=== PATIENT | female | born 1980 | race Hispanic/Latino ===

== ENCOUNTER 2022-11-19 10:09 | Inpatient (IN) | payer OTHER ==
[2022-11-19 11:17] LABS: #Eosinphils 0.1 thou/uL (0.0-0.7); #Monocytes 0.5 thou/uL (0.11-0.59); #Neutrophils 5.4 thou/uL (1.40-6.50); %Basophils 0.3 % (0.0-1.0); %Eosinophils 1.9 % (0.0-10.0); %Lymphocytes 17.1 % (21.0-51.0); %Monocytes 7.2 % (0.0-10.0); %Neutrophils 73.1 % (42.0-75.0); Hemoglobin 11.4 g/dL (12.0-16.0); Mean Corpuscular HGB CONC 31.5 g/dL (32.0-36.0); Mean Corpuscular Hemoglobin 27.9 pg (27.0-31.0); Mean Corpuscular Volume 88.7 fl (78.0-98.0); Mean Platelet Volume 8.7 fL (7.4-10.4); Platelet Count 460 10x3/uL (130-400); RBC Distribution Width 13.2 % (11.5-14.5); Red Blood Cell (RBC) Count 4.08 mill/uL (4.20-5.40); White Blood Cell (WBC) Count 7.4 10x3/uL (4.8-10.8)
[2022-11-19 11:42] LABS: BHCG - Serum Negative (NEGATIVE); Pregs Control Background? CLEAR/WHITE (CLR/WHITE); Pregs Control Bar Appear? YES (CONTROL BAR)
[2022-11-19 12:01] LABS: ALT (SGPT) 14 U/L (8-55); AST (SGOT) 13 U/L (5-34); Albumin 3.6 g/dL (3.5-5.0); Alkaline Phosphatase 59 U/L (40-110); Anion Gap 12 mmol/L (10-20); BUN (Urea Nitrogen) 14 mg/dL (7.0-18.7); Bilirubin, Total 0.2 mg/dL (0.2-1.2); Calc. Creatinine Clearance 0 mL/min (70-130); Calcium 8.9 mg/dL (7.8-10.44); Carbon Dioxide 25 mmol/L (22-29); Chloride 107 mmol/L (98-107); Estimated GFR 114; Globulin 3.9 g/dL (2.4-3.5); Glucose 89 mg/dL (70-105); Potassium 4.4 mmol/L (3.5-5.1); Protein, Total 7.5 g/dL (6.0-8.3); Sodium 140 mmol/L (136-145)
[2022-11-19] MEDS ORDERED: Aspirin 325 MG TAB ONE (13:23)
[2022-11-19] MEDS ORDERED: Morphine 4 MG/ML VIAL ONE (13:25)
[2022-11-19] MEDS ORDERED: Ondansetron PF 4 MG/2 ML Vial ONE (13:25)
[2022-11-19] MEDS ORDERED: Aspirin Chewable 81 MG TAB ONE ×2 (13:25→13:35)
[2022-11-19] MEDS ORDERED: Cefepime 2 GM VIAL ONE (15:00)
[2022-11-19] MEDS ORDERED: Vancomycin 1.5 GRAM/300 ML BAG 1.5 GM in Premix Bag 1 BAG IVPB SCH (15:30)
[2022-11-19 15:51] VITALS: BMI 35.2
[2022-11-19] MEDS ORDERED: [UNRECOGNIZED DRUG - OTHER] IVPB PRN (16:00)
[2022-11-19] MEDS ORDERED: VANCOMYCIN IVPB PRN (16:00)
[2022-11-19] MEDS ORDERED: HYDROcodone/Acetaminophen 5/325 mg Tablet ONE (16:02)
[2022-11-19] MEDS: HYDROcodone/Acetaminophen 5/325 mg Tablet PO PRN ×2 (16:05→22:14)
[2022-11-19] MEDS ORDERED: Ondansetron ODT 4 MG TAB PO PRN (17:01)
[2022-11-19] MEDS ORDERED: Senokot S 8.6-50 MG TAB PO PRN (17:01)
[2022-11-19] MEDS ORDERED: Calcium Carbonate 500 MG ChewTAB PO PRN (17:01)
[2022-11-19] MEDS: cefTRIAXone\\ROCEPHIN 2 GM in Sodium Chloride 0.9% 100 ML IVPB SCH (22:12)
[2022-11-19] MEDS: Famotidine 20 MG TAB PO SCH (22:13)
[2022-11-19] MEDS: Acetaminophen 325 MG TAB PO PRN (23:42)
[2022-11-20] MEDS: Vancomycin 1.5 GRAM/300 ML BAG 1.5 GM in Premix Bag 1 BAG IVPB SCH ×4 (00:03→20:55)
[2022-11-20] MEDS ORDERED: Amitriptyline HCl 100 MG TAB PO SCH (00:19)
[2022-11-20] MEDS: Acetaminophen 325 MG TAB PO PRN (05:43)
[2022-11-20] MEDS: HYDROcodone/Acetaminophen 5/325 mg Tablet PO PRN ×3 (05:44→17:33)
[2022-11-20 07:21] LABS: HIV (1/2) Antibody/Antigen Non-Reactive (NonReactive); HIV 1/2 INDEX 0.12 S/CO (<1.00)
[2022-11-20] MEDS: Famotidine 20 MG TAB PO SCH ×2 (08:12→20:54)
[2022-11-20] MEDS ORDERED: metFORMIN 500 MG TAB PO SCH (09:00)
[2022-11-20] MEDS: Furosemide 40 MG TAB PO SCH ×2 (09:16→20:54)
[2022-11-20] MEDS: Propranolol 40 MG TAB PO SCH ×3 (09:16→20:57)
[2022-11-20] MEDS: Saccharomyces boulardii 250 MG CAP PO SCH (09:16)
[2022-11-20 10:50] LABS: Syphilis Antibody Nonreactive (Nonreactive); Syphilis Antibody Index 0.14 S/CO (<1.00 Non-Reactive)
[2022-11-20 13:05] LABS: ANA Symphony (Qualitative) Negative (Negative); ANA Symphony (Quantitative) Less than 0.1 Ratio (< 0.7 Negative); dsDNA IgG Antibody 2.6 IU/mL (<10 Negative)
[2022-11-20] MEDS: DULoxetine 30 MG CAP PO SCH (17:33)
[2022-11-20] MEDS: metFORMIN 500 MG TAB PO SCH (17:34)
[2022-11-20] MEDS: cefTRIAXone\\ROCEPHIN 2 GM in Sodium Chloride 0.9% 100 ML IVPB SCH (20:57)
[2022-11-21] MEDS: HYDROcodone/Acetaminophen 5/325 mg Tablet PO PRN ×4 (00:19→20:12)
[2022-11-21 07:11] LABS: #Eosinphils 0.1 thou/uL (0.0-0.7); #Monocytes 0.6 thou/uL (0.11-0.59); #Neutrophils 3.1 thou/uL (1.40-6.50); %Basophils 0.5 % (0.0-1.0); %Eosinophils 2.1 % (0.0-10.0); %Lymphocytes 31.6 % (21.0-51.0); %Monocytes 9.8 % (0.0-10.0); %Neutrophils 55.6 % (42.0-75.0); Mean Corpuscular HGB CONC 31.4 g/dL (32.0-36.0); Mean Corpuscular Hemoglobin 27.7 pg (27.0-31.0); Mean Corpuscular Volume 88.2 fl (78.0-98.0); Mean Platelet Volume 8.8 fL (7.4-10.4); Platelet Count 446 10x3/uL (130-400); Red Blood Cell (RBC) Count 3.97 mill/uL (4.20-5.40); White Blood Cell (WBC) Count 5.6 10x3/uL (4.8-10.8)
[2022-11-21] MEDS: Vancomycin 1.5 GRAM/300 ML BAG 1.5 GM in Premix Bag 1 BAG IVPB SCH ×2 (07:39→20:06)
[2022-11-21] MEDS: metFORMIN 500 MG TAB PO SCH ×2 (07:40→17:37)
[2022-11-21] MEDS: Saccharomyces boulardii 250 MG CAP PO SCH (07:40)
[2022-11-21] MEDS: Propranolol 40 MG TAB PO SCH ×2 (07:40→20:07)
[2022-11-21] MEDS: Furosemide 40 MG TAB PO SCH ×2 (07:40→20:07)
[2022-11-21] MEDS: Famotidine 20 MG TAB PO SCH ×2 (07:40→20:07)
[2022-11-21 07:41] LABS: Anion Gap 15 mmol/L (10-20); BUN (Urea Nitrogen) 10 mg/dL (7.0-18.7); CRP (Inflammatory) 7.13 mg/dL (= or < 0.5); Calc. Creatinine Clearance 181 mL/min (70-130); Calcium 8.9 mg/dL (7.8-10.44); Carbon Dioxide 25 mmol/L (22-29); Chloride 99 mmol/L (98-107); Estimated GFR 114; Glucose 82 mg/dL (70-105); Sodium 135 mmol/L (136-145)
[2022-11-21] MEDS: Amitriptyline HCl 100 MG TAB PO SCH (08:16)
[2022-11-21 11:44] LABS: Chlam.trachomatis by PCR,Urine Not Detected (NotDetected); GC N.gonorrhoeae PCR,UrineVOID Not Detected (NotDetected)
[2022-11-21 15:29] LABS: MONO NEGATIVE CONTROL ZONE White (Negative) (White); MONO POSITIVE CONTROL Pink Line (Positive) (PINK/RED); Mononucleosis NEGATIVE (NEGATIVE)
[2022-11-21 15:51] LABS: HBCM Index 0.07 S/CO (0-0.79); HBSAg Index 0.24 S/CO (0-0.99); Hep A IgM AB Non-Reactive S/CO (NonReactive); Hep A IgM S/CO 0.21 S/CO (0-0.79); Hep B Surf Ag Non-Reactive S/CO (NonReactive); Hep C IgG Ab Non-Reactive S/CO (NonReactive); Hep C Index 0.09 S/CO (0-0.79); Hepatitis B Core IgM Abs Non-Reactive S/CO (NonReactive)
[2022-11-21] MEDS: DULoxetine 30 MG CAP PO SCH (17:37)
[2022-11-21] MEDS: cefTRIAXone\\ROCEPHIN 2 GM in Sodium Chloride 0.9% 100 ML IVPB SCH (20:01)
[2022-11-21] MEDS: predniSONE 50 MG TAB PO SCH (20:06)
[2022-11-21] MEDS: Acetaminophen 325 MG TAB PO PRN (20:15)
[2022-11-21] MEDS: Ondansetron PF 4 MG/2 ML Vial IVP PRN (22:22)
[2022-11-22] MEDS: predniSONE 50 MG TAB PO SCH ×2 (01:34→08:03)
[2022-11-22 02:30] VITALS: TEMP 98.1
[2022-11-22] MEDS: HYDROcodone/Acetaminophen 5/325 mg Tablet PO PRN (06:26)
[2022-11-22 07:46] LABS: Vancomycin, Trough 12.8 ug/mL
[2022-11-22] MEDS ORDERED: diphenhydrAMINE 25 MG CAP PO SCH (08:00)
[2022-11-22] MEDS: Ondansetron PF 4 MG/2 ML Vial IVP PRN (08:06)
[2022-11-22 08:46] VITALS: BP 98/63
[2022-11-22] MEDS: Saccharomyces boulardii 250 MG CAP PO SCH (09:56)
[2022-11-22] MEDS: Famotidine 20 MG TAB PO SCH (09:56)
[2022-11-22] MEDS: Furosemide 40 MG TAB PO SCH (09:58)
[2022-11-22] MEDS: Amitriptyline HCl 100 MG TAB PO SCH (09:58)
[2022-11-22] MEDS: metFORMIN 500 MG TAB PO SCH (09:58)
[2022-11-22 10:14] LABS: EBV VCA IgM <36.0 U/mL (0.0-35.9); Nuclear AG IgG (EBNA) AB >600.0 U/mL (0.0-17.9)
[2022-11-22] MEDS: Propranolol 40 MG TAB PO SCH (10:26)
[2022-11-22] MEDS ORDERED: Bicillin LA 1.2 MILLION UNITS/2 ML SYRINGE IM SCH (13:00)
[2022-11-22] MEDS ORDERED: Bicillin LA 2.4 MILL.UNITS/4 ML SYRINGE IM SCH (13:45)
[2022-11-22] MEDS ORDERED: Iopamidol-370 76% 500 ML MDV (1 ML CHARGE) ONE (14:11)
[2022-11-25 22:08] LABS: Mycoplasma pneumoniae IgG AB 164 U/mL (0-99); Mycoplasma pneumoniae IgM AB Less than 770 U/mL (0-769)
== END 2022-11-22 14:59 | DRG 596 ==
LOC: ERS 10:09 → ERHOLD 13:28 → T4-B 19:53 → OBSVTOIN 11-20 13:42
PROVIDERS: ADMIT Internal Medicine; ATTEND Internal Medicine
DX: L52 Erythema nodosum (principal); L03.115 Cellulitis of right lower limb; L03.116 Cellulitis of left lower limb; F41.9 Anxiety disorder, unspecified; E11.9 Type 2 diabetes mellitus without complications; G43.909 Migraine, unspecified, not intractable, without status migrainosus; I10 Essential (primary) hypertension; Z88.2 Allergy status to sulfonamides; Z91.010 Allergy to peanuts; Z79.84 Long term (current) use of oral hypoglycemic drugs; Z79.899 Other long term (current) drug therapy; Z98.890 Other specified postprocedural states
CPT/HCPCS: 36415; 71260; 74177; 80048; 80053; 80074; 80202; 82164; 82550; 83605; 84484; 84703; 85025; 85652; 86038; 86060; 86140; 86225; 86308; 86480; 86664; 86665; 86780; 87040; 87389; 87449; 87491; 87591; 93005; 93306; 96361; 96365; 96366; 96367; 96375; 96376; G0378; J0561; J0692; J0696; J2270; J2405; J3370; J3490; J7512; Q9967

== ENCOUNTER 2022-11-28 07:33 | Outpatient (CLI) | payer OTHER | END 2022-11-28 07:34 | disposition home or self-care (01) | LOC: CT 07:33 | PROVIDERS: ATTEND Family Medicine | DX: K43.9 Ventral hernia without obstruction or gangrene (principal) | CPT/HCPCS: 74150 ==

== ENCOUNTER 2023-06-11 09:51 | Inpatient (IN) | payer OTHER ==
[2023-06-11] MEDS ORDERED: Midazolam HCl 2 mg/2 ml Vial ONE (12:35)
[2023-06-11] MEDS ORDERED: fentaNYL 50 mcg/mL 1 mL Vial ONE ×3 (12:35→16:46)
[2023-06-11] MEDS ORDERED: Sodium Chloride 0.9% 100 ML ONE (13:57)
[2023-06-11] MEDS ORDERED: CEFAZOLIN 2 GM VIAL ONE (13:57)
[2023-06-11] MEDS ORDERED: Moisturizing Cream (Eucerin) 113 GM JAR TOP PRN (14:00)
[2023-06-11] MEDS ORDERED: traMADol HCl 50 MG TAB PO PRN ×2 (14:00)
[2023-06-11] MEDS ORDERED: Naloxone HCl 0.4 mg/ml Vial IV PRN ×2 (14:00→17:29)
[2023-06-11] MEDS ORDERED: HYDROcodone/Acetaminophen 5/325 mg Tablet PO PRN ×2 (14:00)
[2023-06-11] MEDS ORDERED: diphenhydrAMINE 25 MG CAP PO PRN (14:00)
[2023-06-11] MEDS ORDERED: PROPOFOL 20 ML ONE (14:00)
[2023-06-11] MEDS ORDERED: FENTANYL 500 MCG/10 ML VIAL 500 MCG, Bupivacaine 0.75% 10 ML in Sodium Chloride 0.9% 80 ML EPIDURAL SCH (14:00)
[2023-06-11] MEDS ORDERED: Naloxone HCl 0.4 mg/ml Vial IVP PRN (14:00)
[2023-06-11] MEDS ORDERED: Ondansetron PF 4 MG/2 ML Vial IVP PRN ×2 (14:00→15:56)
[2023-06-11] MEDS ORDERED: Bupivacaine 0.25% 10 ML VIAL EPIDURAL PRN (14:00)
[2023-06-11] MEDS ORDERED: Promethazine HCl 25 MG/ML VIAL IM PRN ×3 (14:00→16:09)
[2023-06-11] MEDS ORDERED: Zolpidem Tartrate 5 MG TAB PO PRN (14:00)
[2023-06-11] MEDS ORDERED: Fentanyl 250 MCG/5 ML VIAL ONE (14:00)
[2023-06-11] MEDS ORDERED: diphenhydrAMINE 50 MG/ML VIAL IVP PRN (14:00)
[2023-06-11] MEDS ORDERED: Promethazine HCl 25 MG SUPP PR PRN (14:00)
[2023-06-11] MEDS ORDERED: diphenhydrAMINE 50 MG/ML VIAL IM PRN ×2 (14:00→17:29)
[2023-06-11] MEDS ORDERED: Bupivacaine 0.25% HCL 30 ML VIAL ONE (14:09)
[2023-06-11] MEDS ORDERED: SUCCINYLCHOLINE/SOD CL,ISO/PF 200 MG/10 ML SYRINGE FS ONE (14:11)
[2023-06-11] MEDS ORDERED: Rocuronium Bromide 10 MG/ML (10ML VIAL) ONE (14:11)
[2023-06-11] MEDS ORDERED: Lidocaine 1% PF 5 ML VIAL ONE (14:11)
[2023-06-11] MEDS ORDERED: Lidocaine 1.5% w/Epi 1:200K 30 ML VIAL (Epid Use) ONE (14:11)
[2023-06-11] MEDS ORDERED: fentaNYL PF 100 MCG/2 ML SYRINGE ONE (14:16)
[2023-06-11] MEDS ORDERED: Dexamethasone 4 mg/ml Vial ONE (14:43)
[2023-06-11] MEDS ORDERED: Ondansetron PF 4 MG/2 ML Vial ONE (14:43)
[2023-06-11] MEDS ORDERED: SUGAMMADEX SODIUM 200 MG/2 ML VIAL ONE (15:40)
[2023-06-11] MEDS ORDERED: hydrALAZINE 20 MG/ML VIAL SLOW IVP PRN (15:56)
[2023-06-11] MEDS ORDERED: HYDROmorphone 2 MG/ML VIAL SLOW IVP PRN (16:09)
[2023-06-11] MEDS ORDERED: PACU-Morphine 4MG/ML VIAL SLOW IVP PRN (16:09)
[2023-06-11] MEDS ORDERED: Ondansetron HCl/PF 4 MG/2 ML Vial IVP PRN (16:09)
[2023-06-11] MEDS ORDERED: HYDROmorphone 0.5 MG/0.5 ML SYRINGE ONE ×4 (17:02→18:09)
[2023-06-11] MEDS ORDERED: Communication Order-Pharmacy FS SCH (17:30)
[2023-06-11] MEDS ORDERED: Ketorolac Tromethamine 30 MG (1 mL) VIAL ONE (18:26)
[2023-06-11] MEDS: Ketorolac Tromethamine 30 MG (1 mL) VIAL IVP SCH (20:46)
[2023-06-11] MEDS: Sodium Chloride 0.9% 1,000 ML IV SCH (21:27)
[2023-06-11] MEDS: Famotidine/PF 20 mg/2ml Vial SLOW IVP SCH (21:27)
[2023-06-11] MEDS: Famotidine 20 MG TAB PO SCH (21:27)
[2023-06-11] MEDS: CEFAZOLIN 2 GM in Sodium Chloride 0.9% 100 ML IVPB SCH (21:27)
[2023-06-11] MEDS: Ondansetron PF 4 MG/2 ML Vial IVP PRN (21:36)
[2023-06-12] MEDS: Promethazine HCl 25 MG/ML VIAL IM PRN (01:13)
[2023-06-12 04:41] LABS: #Monocytes 0.4 thou/uL (0.11-0.59); #Neutrophils 11.2 thou/uL (1.40-6.50); %Basophils 0.1 % (0.0-1.0); %Lymphocytes 4.7 % (21.0-51.0); %Monocytes 3.2 % (0.0-10.0); %Neutrophils 91.7 % (42.0-75.0); Hematocrit 34.9 % (36.0-47.0); Mean Corpuscular HGB CONC 31.5 g/dL (32.0-36.0); Mean Corpuscular Hemoglobin 28.1 pg (27.0-31.0); Mean Corpuscular Volume 89.3 fl (78.0-98.0); Mean Platelet Volume 9.6 fL (7.4-10.4); Platelet Count 308 10x3/uL (130-400); RBC Distribution Width 14.8 % (11.5-14.5); Red Blood Cell (RBC) Count 3.91 mill/uL (4.20-5.40); White Blood Cell (WBC) Count 12.2 10x3/uL (4.8-10.8)
[2023-06-12 05:06] LABS: Anion Gap 13 mmol/L (10-20); BUN (Urea Nitrogen) 14 mg/dL (7.0-18.7); Calc. Creatinine Clearance 206 mL/min (70-130); Calcium 8.3 mg/dL (7.8-10.44); Carbon Dioxide 23 mmol/L (22-29); Chloride 104 mmol/L (98-107); Estimated GFR 113; Glucose 143 mg/dL (70-105); Potassium 4.2 mmol/L (3.5-5.1); Sodium 136 mmol/L (136-145)
[2023-06-12] MEDS: SUMAtriptan Succinate 50 MG TAB PO PRN (05:23)
[2023-06-12] MEDS: Enoxaparin 40 MG (0.4 mL) SYRINGE SC SCH (08:26)
[2023-06-12] MEDS: FENTANYL 500 MCG/10 ML VIAL 2,000 MCG in Sodium Chloride 0.9% 60 ML IV PRN (15:50)
[2023-06-12 17:30] LABS: Hemoglobin 10.2 g/dL (12.0-16.0); Platelet Count 264 10x3/uL (130-400)
[2023-06-12 23:58] VITALS: BMI 42.4
[2023-06-13 03:38] LABS: Hemoglobin 9.5 g/dL (12.0-16.0); Platelet Count 238 10x3/uL (130-400)
[2023-06-13] MEDS: Ipratropium/Albuterol 3 ML NEB NEB PRN (08:21)
[2023-06-13] MEDS ORDERED: Bisacodyl 10 MG SUPP PR PRN (11:56)
[2023-06-13] MEDS: Enoxaparin 40 MG (0.4 mL) SYRINGE SC SCH (21:40)
[2023-06-13] MEDS: diphenhydrAMINE 50 MG/ML VIAL IVP PRN (21:41)
[2023-06-13] MEDS: Bisacodyl 10 MG SUPP PR SCH (21:45)
[2023-06-15] MEDS: diphenhydrAMINE 25 MG CAP PO PRN (21:41)
[2023-06-16 08:05] LABS: #Eosinphils 0.4 thou/uL (0.0-0.7); #Monocytes 0.5 thou/uL (0.11-0.59); #Neutrophils 3.8 thou/uL (1.40-6.50); %Basophils 0.2 % (0.0-1.0); %Eosinophils 6.3 % (0.0-10.0); %Lymphocytes 19.6 % (21.0-51.0); %Monocytes 8.3 % (0.0-10.0); %Neutrophils 65.3 % (42.0-75.0); Hematocrit 27.6 % (36.0-47.0); Hemoglobin 8.9 g/dL (12.0-16.0); Mean Corpuscular HGB CONC 32.2 g/dL (32.0-36.0); Mean Corpuscular Hemoglobin 29.2 pg (27.0-31.0); Mean Corpuscular Volume 90.5 fl (78.0-98.0); Mean Platelet Volume 8.9 fL (7.4-10.4); Platelet Count 309 10x3/uL (130-400); RBC Distribution Width 14.5 % (11.5-14.5); Red Blood Cell (RBC) Count 3.05 mill/uL (4.20-5.40); White Blood Cell (WBC) Count 5.9 10x3/uL (4.8-10.8)
[2023-06-16 08:40] LABS: ALT (SGPT) 13 U/L (8-55); AST (SGOT) 15 U/L (5-34); Albumin 2.9 g/dL (3.5-5.0); Alkaline Phosphatase 48 U/L (40-110); Anion Gap 14 mmol/L (10-20); BUN (Urea Nitrogen) 4 mg/dL (7.0-18.7); Bilirubin, Total 0.5 mg/dL (0.2-1.2); Calc. Creatinine Clearance 239 mL/min (70-130); Calcium 8.1 mg/dL (7.8-10.44); Carbon Dioxide 24 mmol/L (22-29); Chloride 104 mmol/L (98-107); Estimated GFR 117; Globulin 2.6 g/dL (2.4-3.5); Glucose 93 mg/dL (70-105); Potassium 3.8 mmol/L (3.5-5.1); Protein, Total 5.5 g/dL (6.0-8.3); Sodium 138 mmol/L (136-145)
[2023-06-16] MEDS ORDERED: fentaNYL 50 mcg/mL 1 mL Vial SLOW IVP PRN (10:58)
[2023-06-16] MEDS ORDERED: HYDROcodone/Acetaminophen 7.5/325 mg Tablet PO PRN (10:58)
[2023-06-16] MEDS: HYDROcodone/Acetaminophen 7.5/325 mg Tablet PO PRN (11:44)
[2023-06-16] MEDS: Fleet Saline Enema 133 ML BOT PR SCH (14:47)
[2023-06-17 03:30] VITALS: TEMP 98.5
[2023-06-17 07:38] VITALS: BP 96/63
== END 2023-06-17 10:35 | disposition home or self-care (01) | DRG 353 ==
LOC: EEVIPCON → SDC 09:51 → SURG A 15:56 → SJJU 06-12 19:58
PROVIDERS: ADMIT Surgery; ATTEND Surgery
PROC: 0WUF0JZ Supplement Abdominal Wall with Synthetic Substitute, Open Approach (ICD-10-PCS; principal; 2023-06-11)
DX: K43.6 Other and unspecified ventral hernia with obstruction, without gangrene (principal); J96.01 Acute respiratory failure with hypoxia; J98.11 Atelectasis; K91.89 Other postprocedural complications and disorders of digestive system; K56.7 Ileus, unspecified; Z68.41 Body mass index [BMI] 40.0-44.9, adult; E66.01 Morbid (severe) obesity due to excess calories; Z79.899 Other long term (current) drug therapy; Z98.890 Other specified postprocedural states
CPT/HCPCS: 36415; 71045; 74018; 80048; 80053; 85014; 85018; 85025; 85049; 94640; A4314; C1781; J0665; J1100; J1170; J1200; J1650; J1885; J2001; J2250; J2405; J2550; J2704; J3010; J3490; J7050; J7620; S0028

== ENCOUNTER 2023-10-10 15:31 | Emergency (ER) | payer OTHER ==
[~2023-10-10 15:31] MED LIST: Iopamidol-370 76% 500 ML MDV (1 ML CHARGE) ONE
[2023-10-10 16:32] LABS: #Basophils 0.04 10x3/uL (0.0-0.2); %Basophils 0.4 % (0.0-1.0); %Eosinophils 1.4 % (0.0-10.0); %Lymphocytes 23.7 % (21.0-51.0); %Monocytes 5.6 % (0.0-10.0); %Neutrophils 67.9 % (42.0-75.0); Hematocrit 39.6 % (36.0-47.0); Hemoglobin 12.6 g/dL (12.0-16.0); Mean Corpuscular HGB CONC 31.8 g/dL (32.0-36.0); Mean Corpuscular Hemoglobin 28.4 pg (27.0-31.0); Mean Corpuscular Volume 89.2 fL (78.0-98.0); Mean Platelet Volume 9.1 fL (7.4-10.4); Platelet Count 344 10x3/uL (130-400); RBC Distribution Width 14.1 % (11.5-14.5); Red Blood Cell (RBC) Count 4.44 mill/uL (4.20-5.40)
[2023-10-10 16:46] LABS: ALT (SGPT) 9 U/L (8-55); AST (SGOT) 10 U/L (5-34); Albumin 3.6 g/dL (3.5-5.0); Alkaline Phosphatase 100 U/L (40-110); Anion Gap 12 mmol/L (10-20); BUN (Urea Nitrogen) 10 mg/dL (7.0-18.7); Bilirubin, Total 0.3 mg/dL (0.2-1.2); Calc. Creatinine Clearance 0 mL/min (70-130); Calcium 9.5 mg/dL (7.8-10.44); Carbon Dioxide 24 mmol/L (22-29); Chloride 105 mmol/L (98-107); Estimated GFR 108; Glucose 116 mg/dL (70-105); Potassium 4.1 mmol/L (3.5-5.1); Protein, Total 7.6 g/dL (6.0-8.3); Sodium 137 mmol/L (136-145)
[2023-10-10] MEDS ORDERED: methylPREDNISolone Sod Succ 40 MG VIAL ONE (17:15)
[2023-10-10] MEDS ORDERED: diphenhydrAMINE 50 MG/ML VIAL ONE (17:15)
[2023-10-10] MEDS ORDERED: Famotidine/PF 20 mg/2ml Vial ONE (17:16)
[2023-10-10 17:20] LABS: BHCG - Serum Negative (NEGATIVE); Pregs Control Background? CLEAR/WHITE (CLR/WHITE); Pregs Control Bar Appear? YES (CONTROL BAR)
[2023-10-10 19:35] LABS: Bilirubin Negative (Negative); Blood, Urine Trace (Negative); Glucose, Urine (Dipstick) Negative (Negative); Ketone, Urine Negative (Negative); Leukocyte Negative (Negative); Nitrite Negative (Negative); Protein, Urine (Dipstick) Negative (Neg-Trace); Urobilinogen 0.2 mg/dL (Less than 2)
[2023-10-10 19:37] LABS: Clarity Clear (Clear)
[2023-10-10] MEDS ORDERED: traMADol HCl 50 MG TAB ONE (19:39)
[2023-10-10 19:41] LABS: Bacteria/HPF None Seen HPF (None Seen); CAUTI Indications for Culture Dysuria,urgency,freq; RBC/HPF 0-3 HPF (0-3); Squamous Epithelial 0-3 HPF (0-3); WBC/HPF 0-3 HPF (0-3)
[2023-10-10 19:42] LABS: Urine Culture Reflex No No
== END 2023-10-10 20:16 | disposition home or self-care (01) ==
LOC: EEVIPCON 15:31 → ERS 15:31
DX: K91.872 Postprocedural seroma of a digestive system organ or structure following a digestive system procedure (principal); R11.2 Nausea with vomiting, unspecified; G89.18 Other acute postprocedural pain; R10.33 Periumbilical pain; E11.9 Type 2 diabetes mellitus without complications
CPT/HCPCS: 36415; 74177; 80053; 81001; 84703; 85025; 96374; 96375; J1200; J2920; S0028

== ENCOUNTER 2024-03-09 05:56 | Day surgery (SDC) | payer OTHER ==
[2024-03-08 11:34] VITALS: BMI 40.6
[2024-03-09] MEDS ORDERED: Lidocaine 2% PF 5 ML VIAL ONE (08:14)
[2024-03-09] MEDS ORDERED: PROPOFOL 20 ML ONE ×3 (08:14→08:42)
[2024-03-09] MEDS ORDERED: fentaNYL PF 100 MCG/2 ML SYRINGE ONE (08:42)
== END 2024-03-09 09:45 | disposition home or self-care (01) ==
LOC: SDC 05:56
PROVIDERS: ATTEND Internal Medicine
PROC: 0DBK8ZZ Excision of Ascending Colon, Via Natural or Artificial Opening Endoscopic (ICD-10-PCS; principal; 2024-03-09)
PROC: 0DBL8ZZ Excision of Transverse Colon, Via Natural or Artificial Opening Endoscopic (ICD-10-PCS; principal; 2024-03-09)
PROC: 0DB68ZX Excision of Stomach, Via Natural or Artificial Opening Endoscopic, Diagnostic (ICD-10-PCS; principal; 2024-03-09)
DX: D12.2 Benign neoplasm of ascending colon (principal); D12.3 Benign neoplasm of transverse colon; K29.50 Unspecified chronic gastritis without bleeding; K44.9 Diaphragmatic hernia without obstruction or gangrene; K64.4 Residual hemorrhoidal skin tags; K64.8 Other hemorrhoids; K21.00 Gastro-esophageal reflux disease with esophagitis, without bleeding; K57.30 Diverticulosis of large intestine without perforation or abscess without bleeding; K58.9 Irritable bowel syndrome, unspecified; E11.9 Type 2 diabetes mellitus without complications; F32.A Depression, unspecified; Z80.0 Family history of malignant neoplasm of digestive organs; Z87.442 Personal history of urinary calculi; Z87.891 Personal history of nicotine dependence; Z87.59 Personal history of other complications of pregnancy, childbirth and the puerperium; Z98.890 Other specified postprocedural states; Z91.041 Radiographic dye allergy status; Z88.6 Allergy status to analgesic agent; Z88.2 Allergy status to sulfonamides; Z91.013 Allergy to seafood; Z79.899 Other long term (current) drug therapy
CPT/HCPCS: 88305; J2704